=== PATIENT | female | born 1950 | race Caucasian/White ===

== ENCOUNTER 2017-04-14 17:50 | Inpatient (IN) | payer OTHER ==
[2017-04-14] MEDS: morphine 4 MG/ML VIAL IV (18:55)
[2017-04-14 19:05] LABS: ADD MAN DIFF? NO
[2017-04-14 19:06] LABS: BASOPHILS % 0.5 % (0.0-2.0); EOSINOPHILS # 0.1 10^3/ul (0.0-0.5); EOSINOPHILS % 1.2 % (0.0-7.0); HEMATOCRIT 37.7 % (37.0-47.0); HEMOGLOBIN 13.1 g/dl (12.0-16.0); LYMPHOCYTES # 2.2 10^3/ul (0.8-2.9); LYMPHOCYTES % 24.8 % (15.0-51.0); MEAN CORPUSCULAR HEMOGLOBIN 32.8 pg (29.0-33.0); MEAN CORPUSCULAR HGB CONC 34.7 g/dl (32.0-37.0); MEAN CORPUSCULAR VOLUME 94.5 fl (82.0-101.0); MEAN PLATELET VOLUME 10.5 fl (7.4-10.4); MONOCYTE # 0.6 10^3/ul (0.3-0.9); MONOCYTES % 6.2 % (0.0-11.0); NEUTROPHIL # 5.9 10^3/ul (1.6-7.5); NEUTROPHILS % 66.6 % (39.0-77.0); PLATELET COUNT 227 10^3/UL (140-415); RED BLOOD COUNT 3.99 10^6/ul (4.20-5.40); RED CELL DISTRIBUTION WIDTH 12.1 % (11.5-14.5)
[2017-04-14 19:06] LABS: WHITE BLOOD COUNT 8.9 10^3/ul (4.8-10.8)
[2017-04-14 19:26] LABS: INR 0.89; PROTIME 12.1 Sec (11.9-14.9); PT RATIO 0.9
[2017-04-14 19:27] LABS: ANION GAP 16 (8-16); BLOOD UREA NITROGEN 13 mg/dl (7-20); CALCIUM 8.9 mg/dl (8.4-10.2); CARBON DIOXIDE 25 mmol/L (21-31); CHLORIDE 103 mmol/L (97-110); CREATININE 0.69 mg/dl (0.44-1.00); GLUCOSE 114 mg/dl (70-220); POTASSIUM 3.8 mmol/L (3.5-5.1); SODIUM 140 mmol/L (135-144)
[2017-04-14] MEDS: FENTAnyl 50 MCG/ML VIAL IV (21:15)
[2017-04-14] MEDS ORDERED: ONDANSETRON 4 MG INJ IV (21:30)
[2017-04-14] MEDS ORDERED: ACETAMINOPHEN 325 MG TAB PO (21:30)
[2017-04-14] MEDS: morphine 10 MG INJ IV (22:44)
[2017-04-15] MEDS ORDERED: ALBUTEROL/IPRATROPIUM (NEB) 3 ML AMP HHN (01:00)
[2017-04-15] MEDS ORDERED: NACL 0.9% 3 ML SYG IV (01:00)
[2017-04-15] MEDS: morphine 4 MG/ML VIAL IV ×3 (02:16→17:09)
[2017-04-15] MEDS: HYDROmorphONE 1 MG/ML SYG IV (04:40)
[2017-04-15] MEDS: ONDANSETRON 4 MG INJ IV (04:50)
[2017-04-15 06:08] LABS: ADD MAN DIFF? NO
[2017-04-15 06:37] LABS: BASOPHILS % 0.2 % (0.0-2.0); HEMATOCRIT 34.8 % (37.0-47.0); HEMOGLOBIN 11.9 g/dl (12.0-16.0); LYMPHOCYTES # 1.2 10^3/ul (0.8-2.9); LYMPHOCYTES % 13.5 % (15.0-51.0); MEAN CORPUSCULAR HEMOGLOBIN 32.5 pg (29.0-33.0); MEAN CORPUSCULAR HGB CONC 34.2 g/dl (32.0-37.0); MEAN CORPUSCULAR VOLUME 95.1 fl (82.0-101.0); MEAN PLATELET VOLUME 11.2 fl (7.4-10.4); MONOCYTE # 0.6 10^3/ul (0.3-0.9); MONOCYTES % 6.6 % (0.0-11.0); NEUTROPHIL # 6.9 10^3/ul (1.6-7.5); NEUTROPHILS % 79.4 % (39.0-77.0); PLATELET COUNT 192 10^3/UL (140-415); RED BLOOD COUNT 3.66 10^6/ul (4.20-5.40); RED CELL DISTRIBUTION WIDTH 12.2 % (11.5-14.5)
[2017-04-15 06:37] LABS: WHITE BLOOD COUNT 8.7 10^3/ul (4.8-10.8)
[2017-04-15] MEDS: LEVOTHYROXINE 137 MCG TAB PO (06:41)
[2017-04-15 07:21] LABS: ALANINE AMINOTRANSFERASE 38 IU/L (13-69); ALBUMIN/GLOBULIN RATIO 1.33; ALKALINE PHOSPHATASE 93 IU/L (42-121); ANION GAP 16 (8-16); ASPARTATE AMINO TRANSFERASE 35 IU/L (15-46); BILIRUBIN,INDIRECT 0.7 mg/dl (0-1.1); BILIRUBIN,TOTAL 0.7 mg/dl (0.2-1.3); BLOOD UREA NITROGEN 13 mg/dl (7-20); CALCIUM 8.6 mg/dl (8.4-10.2); CARBON DIOXIDE 25 mmol/L (21-31); CHLORIDE 104 mmol/L (97-110); CHOL/HDL RATIO 4.9 RATIO; CHOLESTEROL 243 mg/dl (100-200); CREATININE 0.57 mg/dl (0.44-1.00); GLUCOSE 133 mg/dl (70-220); HDL CHOLESTEROL 49 mg/dl (35-98); LDL CHOLESTEROL,CALCULATED 179 mg/dl; MAGNESIUM 1.9 mg/dl (1.7-2.5); PHOSPHORUS 3.8 mg/dl (2.5-4.9); POTASSIUM 3.9 mmol/L (3.5-5.1); SODIUM 141 mmol/L (135-144); TRIGLYCERIDES 73 mg/dl (0-149)
[2017-04-15 08:44] LABS: HEMOGLOBIN A1C 5.5 % (0-5.9)
[2017-04-15] MEDS: HEPARIN 5,000 UNIT/0.5 ML VIAL SC ×2 (09:02→21:08)
[2017-04-15] MEDS: PANTOPRAZOLE (EC) 40 MG TAB PO (11:37)
[2017-04-15 17:03] LABS: FREE THYROXINE INDEX (Calc) 2.43 ug/ml (0.65-3.89)
[2017-04-15 17:04] LABS: T3 UPTAKE 33.3 % (23.5-40.5); T4 (THYROXINE) 7.3 ug/dl (5.5-11.0)
[2017-04-15 18:14] LABS: HEPATITIS B SURFACE ANTIGEN NEGATIVE (NEGATIVE)
[2017-04-15 18:31] LABS: HEPATITIS C VIRAL ANTIBODY NEGATIVE (NEGATIVE)
[2017-04-15] MEDS: FAMOTIDINE 20 MG TAB PO (21:02)
[2017-04-15] MEDS: ATORVASTATIN 40 MG TAB PO (21:02)
[2017-04-16] MEDS: morphine 4 MG/ML VIAL IV ×4 (00:40→15:56)
[2017-04-16 05:04] LABS: ADD MAN DIFF? NO
[2017-04-16 05:11] LABS: WHITE BLOOD COUNT 6.7 10^3/ul (4.8-10.8)
[2017-04-16 05:12] LABS: BASOPHILS % 0.3 % (0.0-2.0); EOSINOPHILS # 0.1 10^3/ul (0.0-0.5); EOSINOPHILS % 1.5 % (0.0-7.0); HEMATOCRIT 37.2 % (37.0-47.0); HEMOGLOBIN 12.4 g/dl (12.0-16.0); LYMPHOCYTES # 2.3 10^3/ul (0.8-2.9); LYMPHOCYTES % 34.2 % (15.0-51.0); MEAN CORPUSCULAR HEMOGLOBIN 32.2 pg (29.0-33.0); MEAN CORPUSCULAR HGB CONC 33.3 g/dl (32.0-37.0); MEAN CORPUSCULAR VOLUME 96.6 fl (82.0-101.0); MEAN PLATELET VOLUME 10.8 fl (7.4-10.4); MONOCYTE # 0.6 10^3/ul (0.3-0.9); NEUTROPHIL # 3.7 10^3/ul (1.6-7.5); NEUTROPHILS % 54.7 % (39.0-77.0); PLATELET COUNT 175 10^3/UL (140-415); RED BLOOD COUNT 3.85 10^6/ul (4.20-5.40); RED CELL DISTRIBUTION WIDTH 12.4 % (11.5-14.5)
[2017-04-16 05:56] LABS: ANION GAP 14 (8-16); BLOOD UREA NITROGEN 13 mg/dl (7-20); CARBON DIOXIDE 30 mmol/L (21-31); CHLORIDE 101 mmol/L (97-110); CREATININE 0.75 mg/dl (0.44-1.00); GLUCOSE 107 mg/dl (70-220); MAGNESIUM 2.1 mg/dl (1.7-2.5); PHOSPHORUS 3.8 mg/dl (2.5-4.9); POTASSIUM 3.9 mmol/L (3.5-5.1); SODIUM 141 mmol/L (135-144)
[2017-04-16] MEDS: PANTOPRAZOLE (EC) 40 MG TAB PO (06:18)
[2017-04-16] MEDS: LEVOTHYROXINE 137 MCG TAB PO (06:18)
[2017-04-16] MEDS ORDERED: ACETAMINOPHEN 1000 MG/100 ML IVPB (07:00)
[2017-04-16] MEDS: HEPARIN 5,000 UNIT/0.5 ML VIAL SC ×2 (09:00→21:00)
[2017-04-16] MEDS ORDERED: ONDANSETRON 4 MG INJ (17:11)
[2017-04-16] MEDS ORDERED: PROPOFOL 20 ML ×4 (17:11→20:31)
[2017-04-16] MEDS ORDERED: METOCLOPRAMIDE 10 MG INJ (17:11)
[2017-04-16] MEDS ORDERED: MIDAZOLAM 1 MG/ML 2 ML INJ (17:12)
[2017-04-16] MEDS ORDERED: ROPIVACAINE 0.5 % 30 ML VIAL (17:12)
[2017-04-16] MEDS ORDERED: POLYMYXIN/BACITRACIN 1L IRRIG (17:23)
[2017-04-16] MEDS ORDERED: morphine SULFATE/PF (10 MG/10 ML) INJ (17:24)
[2017-04-16] MEDS ORDERED: BACITRACIN 50000 UNITS INJ (17:25)
[2017-04-16] MEDS ORDERED: KETOROLAC 30 MG INJ (18:04)
[2017-04-16] MEDS ORDERED: HYDROmorphONE (0.2 MG/ML) 10ML SYG IV ×3 (19:30)
[2017-04-16] MEDS ORDERED: DIPHENHYDRAMINE 50 MG INJ IV (19:30)
[2017-04-16] MEDS ORDERED: MEPERIDINE 25 MG INJ IV (19:30)
[2017-04-16] MEDS ORDERED: ROPIVACAINE 0.2% 20 ML VIAL (20:34)
[2017-04-16] MEDS ORDERED: HYDROCODONE/APAP (5/325) TAB PO (21:30)
[2017-04-16] MEDS: ONDANSETRON 4 MG INJ IV (22:10)
[2017-04-16] MEDS: CEFAZOLIN 1 GM/50 ML (PMX) 50 ML IVPB (22:11)
[2017-04-16] MEDS: FAMOTIDINE 20 MG TAB PO (23:10)
[2017-04-16] MEDS: ATORVASTATIN 40 MG TAB PO (23:10)
[2017-04-16] MEDS: D5W-0.45 NACL + KCL 20 MEQ 1,000 ML IV (23:19)
[2017-04-17] MEDS: CEFAZOLIN 1 GM/50 ML (PMX) 50 ML IVPB ×2 (05:18→12:30)
[2017-04-17] MEDS: PANTOPRAZOLE (EC) 40 MG TAB PO (05:19)
[2017-04-17] MEDS: LEVOTHYROXINE 137 MCG TAB PO (05:19)
[2017-04-17] MEDS: POLYETHYLENE GLYCOL 17 GM PACKET PO (05:24)
[2017-04-17] MEDS: ENOXAPARIN 40 MG/0.4 ML SYG SC (08:14)
[2017-04-17] MEDS: HYDROCODONE/APAP (5/325) TAB PO (12:18)
[2017-04-17] MEDS: HYDROmorphONE 1 MG/ML SYG IV (14:59)
[2017-04-17] MEDS: ONDANSETRON 4 MG INJ IV (14:59)
[2017-04-17] MEDS: FAMOTIDINE 20 MG TAB PO (20:08)
[2017-04-17] MEDS: ATORVASTATIN 40 MG TAB PO (20:08)
[2017-04-17] MEDS: morphine 4 MG/ML VIAL IV ×2 (20:08→23:24)
[2017-04-18] MEDS: PANTOPRAZOLE (EC) 40 MG TAB PO (06:01)
[2017-04-18] MEDS: LEVOTHYROXINE 137 MCG TAB PO (06:01)
[2017-04-18] MEDS: ACETAMINOPHEN 325 MG TAB PO ×2 (06:15→15:10)
[2017-04-18] MEDS: morphine 4 MG/ML VIAL IV (06:16)
[2017-04-18] MEDS: POLYETHYLENE GLYCOL 17 GM PACKET PO (09:09)
[2017-04-18] MEDS: ENOXAPARIN 40 MG/0.4 ML SYG SC (09:11)
[2017-04-18] MEDS ORDERED: HYDROmorphONE 2 MG TAB PO (12:10)
[2017-04-18] MEDS: ONDANSETRON 4 MG INJ IV (12:14)
[2017-04-18] MEDS: FAMOTIDINE 20 MG TAB PO (21:17)
[2017-04-18] MEDS: ATORVASTATIN 40 MG TAB PO (21:17)
[2017-04-19] MEDS: PANTOPRAZOLE (EC) 40 MG TAB PO (05:35)
[2017-04-19] MEDS: LEVOTHYROXINE 137 MCG TAB PO (05:36)
[2017-04-19] MEDS: ENOXAPARIN 40 MG/0.4 ML SYG SC (09:50)
[2017-04-19] MEDS: ACETAMINOPHEN 325 MG TAB PO (12:49)
== END 2017-04-19 18:10 | DRG 494 ==
LOC: E/R 17:50 → PP2 21:27
PROC: 0QSG04Z Reposition Right Tibia with Internal Fixation Device, Open Approach (ICD-10-PCS; principal; 2017-04-16 17:34)
PROC: 0QSJ04Z Reposition Right Fibula with Internal Fixation Device, Open Approach (ICD-10-PCS; 2017-04-16 17:34)
PROC: 0QSJXZZ Reposition Right Fibula, External Approach (ICD-10-PCS; 2017-04-16 17:34)
PROC: 0QSGXZZ Reposition Right Tibia, External Approach (ICD-10-PCS; 2017-04-16 17:34)
DX: S82.391A Other fracture of lower end of right tibia, initial encounter for closed fracture (principal); E03.9 Hypothyroidism, unspecified; S82.61XA Displaced fracture of lateral malleolus of right fibula, initial encounter for closed fracture; E78.5 Hyperlipidemia, unspecified; K21.9 Gastro-esophageal reflux disease without esophagitis; W01.0XXA Fall on same level from slipping, tripping and stumbling without subsequent striking against object, initial encounter; Y92.414 Local residential or business street as the place of occurrence of the external cause
CPT/HCPCS: 71045; 73590; 73600; 73610-RT; 80048; 80053; 80061; 83036; 83735; 84100; 84436; 84443; 84479; 85025; 85610; 86803; 87340; 93005; 96374; 96375; 96376; 97163; 99285-25

== ENCOUNTER 2017-09-16 21:58 | Emergency (ER) | payer MEDICARE, OTHER ==
[2017-09-16 22:56] LABS: URINE BLOOD (Dip) POC Negative (NEGATIVE); URINE GLUCOSE (Dip) POC Negative (NEGATIVE); URINE KETONES (Dip) POC Negative (NEGATIVE); URINE LEUKOCYTE EST (Dip) POC 2+ (NEGATIVE); URINE NITRITE (Dip) POC Negative (NEGATIVE); URINE TOTAL PROTEIN POC Negative (NEGATIVE)
== END 2017-09-16 23:36 | disposition home or self-care (01) ==
LOC: FTE 21:58
DX: N30.90 Cystitis, unspecified without hematuria (principal); J45.909 Unspecified asthma, uncomplicated; E03.9 Hypothyroidism, unspecified
CPT/HCPCS: 81003; 87086; 99284